=== PATIENT | female | born 1980 | race Caucasian/White ===

== ENCOUNTER 2016-10-08 14:54 | Emergency (ER) | payer MEDICAID, OTHER ==
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
[2016-10-08] MEDS ORDERED: FAMOTIDINE 10 MG/ML VIAL IV ONE (15:27)
[2016-10-08] MEDS ORDERED: METHYLPREDNISOLONE SOD SUCC/PF 40 MG/ML VIAL ONE (15:27)
[2016-10-08] MEDS: METHYLPREDNISOLONE SOD SUCC/PF 40 MG/ML VIAL IV ONE (15:30)
[2016-10-08] MEDS: FAMOTIDINE 10 MG/ML VIAL IV ONE (15:32)
[2016-10-08 16:26] VITALS: BP 109/73
== END 2016-10-08 17:43 | disposition home or self-care (01) ==
LOC: ER 14:54
DX: R22.0 Localized swelling, mass and lump, head (principal); T36.8X5A Adverse effect of other systemic antibiotics, initial encounter; F17.210 Nicotine dependence, cigarettes, uncomplicated; J45.909 Unspecified asthma, uncomplicated

== ENCOUNTER 2016-12-20 20:22 | Emergency (ER) | payer MEDICAID ==
[2016-12-20] MEDS ORDERED: KETOROLAC TROMETHAMINE 60 MG/2 ML VIAL IM ONE ×2 (21:12→21:23)
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
[2016-12-20 21:51] VITALS: BP 113/68
== END 2016-12-20 21:38 | disposition home or self-care (01) ==
LOC: ER 20:22
DX: S90.31XA Contusion of right foot, initial encounter (principal); F17.200 Nicotine dependence, unspecified, uncomplicated; W22.03XA Walked into furniture, initial encounter; Y93.01 Activity, walking, marching and hiking; Y92.009 Unspecified place in unspecified non-institutional (private) residence as the place of occurrence of the external cause; F32.9 Major depressive disorder, single episode, unspecified